=== PATIENT | male | born 1965 | race Caucasian/White ===

== ENCOUNTER → 2021-07-13 | Outpatient (CLI) | payer OTHER | LOC: RAD 11:25 | PROVIDERS: ATTEND Family Medicine | DX: S62.637B Displaced fracture of distal phalanx of left little finger, initial encounter for open fracture (principal); Z89.022 Acquired absence of left finger(s); X58.XXXA Exposure to other specified factors, initial encounter; Y92.89 Other specified places as the place of occurrence of the external cause; Y93.89 Activity, other specified; Y99.8 Other external cause status ==

== ENCOUNTER → 2021-08-11 | Outpatient (CLI) | payer OTHER | LOC: RAD 11:39 | PROVIDERS: ATTEND Family Medicine | DX: S62.605D Fracture of unspecified phalanx of left ring finger, subsequent encounter for fracture with routine healing (principal); X58.XXXD Exposure to other specified factors, subsequent encounter ==